=== PATIENT | male | born 1985 | race Caucasian/White ===

== ENCOUNTER 2020-03-24 16:45 | Emergency (ER) | payer SELFPAY ==
--- NOTE | 2020-03-24 16:47 | XRR_ITS ---
PROCEDURE INFORMATION: Exam: XR Right Ankle Exam date and time: 03/24/2020 4:48 PM Age: 34 years old Clinical indication: Injury or trauma; Fall; Initial encounter; Blunt trauma; Ankle; Right TECHNIQUE: Imaging protocol: XR Right ankle. Views: 3 or more views. COMPARISON: No relevant prior studies available. FINDINGS: No acute fracture or dislocation is demonstrated. There is soft tissue swelling laterally. XR/XR ankle RT min 3V* [id number] IMPRESSION: No acute osseous abnormality is demonstrated.
[2020-03-24 16:53] VITALS: BP 149/74; PULSE 99; RESP 14; TEMP 37.2; O2SAT 98; BMI 25.7
--- NOTE | 2020-03-24 17:01 | XRR_ITS ---
PROCEDURE INFORMATION: Exam: XR Right Knee Exam date and time: 03/24/2020 5:02 PM Age: 34 years old Clinical indication: Injury or trauma; Fall; Initial encounter; Blunt trauma; Knee; Right TECHNIQUE: Imaging protocol: XR Right knee. Views: 3 views. COMPARISON: No relevant prior studies available. FINDINGS: No acute fracture or dislocation is demonstrated. Small well-corticated bone fragments near tibial tuberosity are most compatible with sequela of old insult. XR/XR knee RT 3V* [id number] IMPRESSION: No acute osseous abnormality is demonstrated.
--- NOTE | 2020-03-24 17:02 | ED_ITS ---
HPI - Extremity Problem General: Chief complaint: Extremity Injury, Lower Stated complaint: R ANKLE INJURY Time Seen by Provider: 03/24/20 16:49 Source: patient Mode of arrival: ambulatory Limitations: no limitations History of Present Illness: HPI Narrative: 34-year-old male states he is [place] leg and twisted his right ankle and felt a pop. He does have swelling to the lateral portion of his ankle. He states he has knee pain as well. Patient states that he is fell off a ladder 2 weeks ago and had an ankle pain since then. MD Complaint: extremity pain Onset (ago): hour(s) Pain Consistency: constant Location: right Severity scale (1-10): 6 Quality: sharp Radiation: none Relieving factors: immobilization Exacerbating factors: weight bearing Associated symptoms: Deny chest pain, fever(s) or rash Review of Systems 2 Const: Denies: fever(s), chills, body aches or change in appetite Eyes: Denies: blurry vision or eye discomfort ENMT: Denies: throat pain or dental pain Card: Denies: chest pain Resp: Denies: dyspnea GI: Denies: abdominal pain, nausea, vomiting or diarrhea : Denies: dysuria Musc: Reports: joint pain Skin/Breast: Denies: rash Neuro: Denies: headache(s) Psych: Denies: depression Willam/Lymph: Denies: easy bruising All/Imm: Denies: urticaria PFSH ED PFSH: Social History Smoking and tobacco status: current every day smoker Physical Exam Const: COMMON NORMALS: no acute distress, patient oriented x3 and healthy appearing HENMT: COMMON NORMALS: normocephalic and atraumatic HEAD & SCALP: normocephalic and atraumatic Eye: COMMON NORMALS: Equal, round and reactive pupils present and EOMs intact bilaterally PUPIL: Yes Equal, round and reactive pupils present Neck/C-Spine: COMMON NORMALS: full ROM and supple Chest: COMMONS NORMALS: normal inspection of the chest and normal palpation of entire chest wall Resp: COMMON NORMALS: normal respiratory effort, No retractions, No use of accessory muscles and clear to auscultation bilaterally AUSCULTATION: clear to auscultation bilaterally Cardio: COMMON NORMALS: regular rate, regular rhythm and No murmurs present (Cardio) RATE: regular rate RHYTHM: regular rhythm GI: COMMON NORMALS: Normal to inspection, nondistended, normoactive bowel sounds present, Soft to palpation, non-tender and no masses PALPATION: Yes Soft to palpation Extremity: COMMON NORMALS: full ROM NARRATIVE EXTREMITY EXAM: Swelling to right lateral ankle with tenderness over right ankle and right knee. Neuro: COMMON NORMALS: patient oriented x3, moves all extremities and no focal motor deficits Psych: COMMON NORMALS: mental status grossly normal, Normal thought process present and cooperative THOUGHT PROCESS: Normal thought process present Skin: COMMON NORMALS: no rashes or lesions noted and no wounds GENERAL SKIN EXAM: no rashes or lesions noted Course Vital Signs: Vital signs: Vital Signs Temperature 98.9 F 03/24/20 16:53 Pulse Rate 99 03/24/20 16:53 Respiratory Rate 14 03/24/20 16:53 Blood Pressure 149/74 03/24/20 16:53 Pulse Oximetry 98 03/24/20 16:53 MDM - Extremity (Nontraumatic) MDM Narrative: Medical decision making narrative: Patient presents here with an ankle sprain that is moderate in nature. Patient has quite a bit of swelling and tenderness. X-ray shows no fracture. Will place patient in a splint and have him nonweightbearing. He is to follow-up with orthopedics this week. Patient is stable for discharge is return if worsening. Imaging Data^: X-ray right ankle: Attestation: I personally reviewed and interpreted this imaging study as follows: My impression: No acute abnormality X-ray right knee: Attestation: I personally reviewed and interpreted this imaging study as follows: My impression: No acute abnormality Discharge Plan Discharge Patient Disposition: Home, Self-Care Clinical Impression: Ankle sprain and strain Condition: Stable Prescriptions: [place] 5-325 mg tablet 1 tab PO Q6H PRN (Reason: pain) Qty: 10 RF: 0 Naprosyn 500 mg tablet 500 mg PO BID PRN (Reason: pain) Qty: 20 RF: 0 Discharge Orders: Discharge Order (Routine); Ordered 03/24/20 Ordered By: Anne Marie Francisco Discharge Diet: Advance as tolerated Discharge Activity: Resume usual activity Patient Instructions: Ankle Sprain (ED) Coding Level of Care Code ED Enrollment Services Vice President for [facility] Fwd Exam Comprehensive
[2020-03-24] MEDS: HYDROcodone-acetaminophen 7.5-325 mg Tablet 1 TAB PO (17:08)
[2020-03-24 18:12] VITALS: BP 137/81; PULSE 97; RESP 18; TEMP 36.9; O2SAT 98
--- NOTE | 2020-03-27 14:25 | DCPLANNER ---
senior marketing manager had message to schedule a follow up appointment with ortho. senior marketing manager called the ortho clinic, spoke with Pat, gave clinic patients information. senior marketing manager was told that patients information would be printed and reviewed. Clinic will call catalytic case operator and patient with appointment information.
--- NOTE | 2020-03-28 08:02 | DCPLANNER ---
Addendum entered by Carol Bloom 03/28/20 10:06: Pat from ortho called case liner stating that an appointment was scheduled for patient for today, but clinic was unable to reach patient to let patient know about scheduled appointment. senior assistant manager tried calling patient, called phone number [phone], this number was no longer in service, case liner also called [phone] and left a voicemail for patient to return behavioral health case manager phone call. Pat stated that she also called and number was no longer in service, and she also left a voicemail for patient to return her phone call from ortho. Original Note: Patient has a follow up appointment scheduled for Thursday, March 28, [address] at 10:[address] Hebert. Clinic will call patient with appointment information.
--- NOTE | 2020-04-25 12:56 | DCPLANNER ---
Patient had and appointment scheduled for 03.28.20 with ortho, the appointment was cancelled.
== END 2020-03-24 18:10 | disposition home or self-care (01) ==
PROVIDERS: Emergency Provider Emergency Medicine
DX: S93.401A Sprain of unspecified ligament of right ankle, initial encounter (principal); S96.911A Strain of unspecified muscle and tendon at ankle and foot level, right foot, initial encounter; X50.1XXA Overexertion from prolonged static or awkward postures, initial encounter; F17.210 Nicotine dependence, cigarettes, uncomplicated
CPT/HCPCS: 12345; 29515; 73562; 73610; 99281; 99283; E0114